=== PATIENT | male | born 1995 | race Caucasian/White ===

== ENCOUNTER 2024-09-04 09:32 | Emergency (ER) | payer OTHER, SELFPAY ==
[2024-09-04 09:35] VITALS: BP 148/90; PULSE 89; TEMP 37.1; O2SAT 100; BMI 25.7
--- NOTE | 2024-09-04 09:47 | ED.GENADUL1 ---
HPI HPI - General Adult General Chief complaint: Neck Pain/Injury Stated complaint: NECK PAIN/ FEVER Time Seen by Provider: 09/04/24 09:36 Source: patient Mode of arrival: walk-in Limitations: no limitations History of Present Illness HPI narrative: 28-year-old male to the emergency department with chief complaint of neck pain. Patient reports that he has had a vague dull pain in his midline lower neck for the last several days. He noticed it most when he was working on Saturday night. He reports it is improved somewhat but is still present. It is worse when he turns his head. This morning he felt tired and thought he might have a fever. He took his temperature at home and it was 99 degrees. He called his primary care doctor's office and told them that he had neck pain and a fever and was referred to the emergency department for further evaluation. He denies any headache. Denies any confusion. Denies any vision changes, numbness, weakness, tingling, difficulty walking. He is otherwise at his baseline health. Related Data Home Medications ?Medication ?Instructions ?Recorded ?Confirmed No Known Home Medications 09/04/24 09/04/24 Allergies Allergy/AdvReac Type Severity Reaction Status Date / Time No Known Drug Allergies Allergy Verified 09/04/24 09:39 Opioid HPI Opioid Management Most Recent Opioid Data: No Data to Display Review of Systems ROS Status of ROS 10 or more systems reviewed and unremarkable except as noted in history and below PFSH PFSH Social History Little interest or pleasure in doing things: not at all Feeling down, depressed, or hopeless: not at all Exam Narrative Exam Narrative: VITALS: I have reviewed the triage vital signs. GENERAL: Well developed, well appearing adult male in no acute distress. NEURO: Alert and oriented. Moves all extremities. Face is symmetric and expressive. Normal gait. EYES: PERRL. No scleral icterus or conjunctival injection. No discharge. HENT: Normocephalic, atraumatic. Hearing is grossly intact. Nares grossly patent and without discharge. Mucous membranes moist. Oropharyngeal exam unremarkable. Uvula midline. No unilateral peritonsillar swelling. NECK: No JVD. Patient moves neck without restriction. No meningismus. No cervical lymphadenopathy. CARDIO: Rhythm regular. Normal rate. No murmur, rub, or gallop. Pulses equal bilaterally in the upper and lower extremity. No lower extremity edema. PULM: Lungs clear to auscultation in all benitez. No wheezes, rales, or rhonchi. No conversational dyspnea. No splinting, stridor, or accessory muscle use. GI/: Abdomen is soft and non-tender. Normoactive bowel sounds. EXTREMITIES: Symmetric muscle bulk. No joint swelling. No clubbing, cyanosis, or deformity. SKIN: Warm and dry. Normal turgor. No rash or lesions appreciated. PSYCH: Mood, affect, and interaction is appropriate to the setting. Constitutional Vital Signs, click to edit/add: Last Vital Signs Temp 98.7 F 09/04/24 09:35 Pulse 89 09/04/24 09:35 Resp 16 09/04/24 09:35 BP 148/90 H 09/04/24 09:35 Pulse Ox 100 09/04/24 09:35 O2 Del Method Room Air 09/04/24 09:35 Course Vital Signs Vital signs: Vital Signs Temperature 98.7 F 09/04/24 09:35 Pulse Rate 89 09/04/24 09:35 Respiratory Rate 16 09/04/24 09:35 Blood Pressure 148/90 H 09/04/24 09:35 Pulse Oximetry 100 09/04/24 09:35 Oxygen Delivery Method Room Air 09/04/24 09:35 Temperature 98.7 F 09/04/24 09:35 Pulse Rate 89 09/04/24 09:35 Respiratory Rate 16 09/04/24 09:35 Blood Pressure 148/90 H 09/04/24 09:35 Pulse Oximetry 100 09/04/24 09:35 Oxygen Delivery Method Room Air 09/04/24 09:35 Medical Decision Making [facility] Narrative Medical decision making narrative: 28-year-old male to the emergency department with chief complaint of neck pain and fever. Vital stable, the patient is afebrile. He does not have any antipyretics on board. Patient describes a vague lower midline neck discomfort that only occurs with movement. He has full range of motion of his neck. There is no neck stiffness. No meningismus. He is otherwise asymptomatic. Discussed with the patient that he was likely sent to the emergency department by PCP office for evaluation for meningitis given that he reported neck stiffness and fever. We discussed that he does not have a fever here. We discussed that he does not have neck stiffness or signs of meningismus at this time. He is well-appearing. Vague discomfort by history and clinical exam appears to be more musculoskeletal in etiology. Given the very low suspicion at this time for meningitis I believe the risks far outweigh the benefits for lumbar puncture. Patient agrees with this plan. This discussion relieved the patient's anxiety about the situation. I recommended NSAIDs. I recommended closely watching symptoms. Should he worsen or not improve he should represent for repeat evaluation. We discussed signs and symptoms of meningitis. We discussed follow-up with PCP. Return precautions were discussed. All questions were answered. The patient was discharged home. Discharge Plan Discharge Chief Complaint: Neck Pain/Injury Clinical Impression: Neck pain Patient Disposition: Home, Self-Care Time of Disposition Decision: 09:46 Condition: Good Mode of Transportation: Private Vehicle Prescriptions / Home Meds: No Action No Known Home Medications Print Language: Telugu Instructions: Neck Pain (ED) Additional Instructions: Call the office of your primary care doctor to arrange for follow-up within the above-stated timeframe. Your ED visit was focused on your acute issue and does not replace primary care. You should review your labs, imaging, and diagnoses from this ED visit with your primary care physician. There may be non-emergent/ incidental findings that need further evaluation. You should review your vital signs including blood pressure with your PCP. If you were prescribed medications you should discuss possible side-effects and drug interactions with your pharmacist. Call 911 or go to the nearest Emergency Department if you develop any new or worsening symptoms. Seek immediate medical attention if you develop: worsening headache, nausea, vomiting, confusion, weakness, loss of motion in your arms or legs, loss of control of your urine Referrals: JOSE FISHER [Primary Care Provider] - 1 week
[2024-09-04] MEDS: KETOROLAC TROMETHAMINE 30 MG/ML VIAL IM (10:03)
== END 2024-09-04 10:12 | disposition home or self-care (01) ==
PROVIDERS: Emergency Provider Student in an Organized Health Care Education/Training Program; PCP Family Medicine
DX: M54.2 Cervicalgia (principal)
CPT/HCPCS: 96372; 99284; J1885